=== PATIENT | male | born 1975 | race Two or more races ===

== ENCOUNTER 2018-07-08 14:35 | Emergency (ER) | payer OTHER ==
[~2018-07-08] VITALS: Ht 167.6 cm; Wt 65.8 kg
== END 2018-07-08 18:59 | disposition home or self-care (01) ==
LOC: ER 14:35
DX: M54.5 Low back pain (principal)

== ENCOUNTER 2021-09-06 08:00 | Outpatient (CLI) | payer OTHER | END 2021-09-06 08:30 | disposition home or self-care (01) | LOC: PPH VACUNA 08:00 | PROVIDERS: ATTEND Emergency Medicine Pediatric Emergency Medicine | DX: Z23 Encounter for immunization (principal) ==

== ENCOUNTER 2025-02-12 07:40 | Day surgery (SDC) | payer OTHER ==
[2025-02-06 10:02] VITALS: BP 178/90
[~2025-02-12] VITALS: Ht 167.6 cm; Wt 68.0 kg
[2025-02-12] MEDS ORDERED: CEFTRIAXONE SODIUM 2,000 MG VIAL ONE (10:57)
[2025-02-12] MEDS ORDERED: METRONIDAZOLE/SODIUM CHLORIDE 500 MG/100 ML PIGGYBACK IV ONE (10:58)
[2025-02-12] MEDS ORDERED: HEMOSTATIC MATRIX 1 KIT KIT TOP ONE (13:12)
[2025-02-12] MEDS ORDERED: BUPIVACAINE HCL/MPF 0.5% 30ML VIAL ONE (13:12)
[2025-02-12] MEDS ORDERED: DIBUCAINE 30 GM TUBE ONE (13:12)
[2025-02-12] MEDS ORDERED: LIDOCAINE HCL 1%/EPINEPHRINE 20ML VIAL IJ ONE (13:13)
[2025-02-12] MEDS ORDERED: TAMS0.4C PO (14:19)
[2025-02-12] MEDS ORDERED: RECTICARE30 GM TOP (14:19)
[2025-02-12] MEDS ORDERED: PERCOCET 5-3251 EACH PO (14:19)
== END 2025-02-12 19:15 | disposition home or self-care (01) ==
LOC: CIR.AMB 07:40
PROVIDERS: ATTEND Surgery
DX: K64.2 Third degree hemorrhoids (principal); K64.4 Residual hemorrhoidal skin tags; Z91.011 Allergy to milk products

== ENCOUNTER 2025-02-21 04:02 | Inpatient (IN) | payer OTHER ==
[~2025-02-21] VITALS: Ht 167.6 cm; Wt 70.3 kg
[~2025-02-21 04:02] MED LIST: PERCOCET 5-3251 EACH PO; RECTICARE30 GM TOP; TAMS0.4C PO
[2025-02-21] MEDS ORDERED: 0.9 % SODIUM CHLORIDE 1,000 ML IV STA (04:28)
[2025-02-21 04:57] LABS: BASO % 0.5 % (0.1-1.2); EOS # 0.16 (0.04-0.54); EOS % 0.8 % (0.7-7.0); HEMATOCRIT 27.2 % (40.1-51.0); LYMPH # 3.71 (1.18-3.74); LYMPH % 19.3 % (19.3-53.1); MONO # 1.05 (0.24-0.82); MONO % 5.5 % (4.7-12.5); NEUT # 13.83 (1.56-6.13); PLATELET COUNT 466 K/uL (163-369); RED BLOOD COUNT 3.33 M/uL (4.63-6.08); RED CELL DISTRIBUTION WIDTH 14.5 % (11.6-14.4)
[2025-02-21 05:22] LABS: ALBUMIN 3.2 gm/dL (3.4-5.0); BILIRUBIN TOTAL 0.45 mg/dL (0.3-1.2); CALCIUM 8.9 mg/dL (8.5-10.1); CREATININE SERUM 1.38 mg/dL (0.70-1.30); GFR 54.32; GLOBULINA 3.4 G/DL (2.4-3.5); POTASSIUM 4.39 mEq/L (3.5-5.1); TOTAL PROTEIN 6.6 gm/dL (6.4-8.2)
[2025-02-21 06:07] LABS: INR 1.06; PARTIAL THROMBOPLASTIN TIME 26.5 SECONDS (22.0-34.0); PROTHROMBIN TIME 11.5 SECONDS (9.0-11.5)
[2025-02-21] MEDS ORDERED: PIPERACILLIN/TAZOBACTAM SODIUM 3.375 GM VIAL IV STA (07:20)
[2025-02-21] MEDS ORDERED: PIPERACILLIN/TAZOBACTAM SODIUM 3.375 GM VIAL IV ONE (07:25)
[2025-02-21] MEDS ORDERED: DEXTROSE 5 % AND 0.9 % NACL 1,000 ML IV SCH (10:00)
[2025-02-21] MEDS ORDERED: FUROsemide 20 MG/2 ML VIAL IV SCH (10:15)
[2025-02-21] MEDS ORDERED: ENALAPRILAT DIHYDRATE 1.25 MG/ML VIAL IV PRN (10:15)
[2025-02-21] MEDS ORDERED: PIPERACILLIN/TAZOBACTAM SODIUM 3.375 GM in 0.9 % SODIUM CHLORIDE 100 ML IV SCH (12:00)
[2025-02-21 12:19] LABS: BASO % 0.4 % (0.1-1.2); EOS # 0.05 (0.04-0.54); EOS % 0.4 % (0.7-7.0); LYMPH # 2.15 (1.18-3.74); LYMPH % 15.4 % (19.3-53.1); MEAN CORPUSCULAR HEMOGLOBIN 27.6 pg (25.6-32.2); MONO # 0.67 (0.24-0.82); MONO % 4.8 % (4.7-12.5); NEUT # 10.97 (1.56-6.13); NEUT % 78.3 % (34.0-71.1); PLATELET COUNT 347 K/uL (163-369); RED BLOOD COUNT 2.79 M/uL (4.63-6.08); RED CELL DISTRIBUTION WIDTH 14.7 % (11.6-14.4)
[2025-02-21 12:33] LABS: HEMATOCRIT 22.6 % (40.1-51.0); HEMOGLOBIN 7.7 g/dL (13.7-17.5)
[2025-02-21 13:00] VITALS: BP 131/75; O2SAT 100
[2025-02-21 13:03] VITALS: BP 131/75
[2025-02-21 14:15] VITALS: BP 111/70; O2SAT 98
[2025-02-21] MEDS ORDERED: HEMOSTATIC MATRIX 1 KIT KIT TOP ONE (15:46)
[2025-02-21] MEDS ORDERED: DIBUCAINE 30 GM TUBE ONE (15:46)
[2025-02-21] MEDS ORDERED: POVIDONE-IODINE 118 ML BOTT TOP ONE (15:46)
[2025-02-21] MEDS ORDERED: BUPIVACAINE HCL/Mpf 0.5% 10ML VIAL ONE (15:47)
[2025-02-21] MEDS ORDERED: LIDOCAINE HCL 1%/EPINEPHRINE 20ML VIAL IJ ONE (15:47)
[2025-02-21 16:30] VITALS: BP 125/71; O2SAT 98
[2025-02-21] MEDS ORDERED: MORPHINE SULFATE 4 MG/ML VIAL IV PRN (18:00)
[2025-02-21 19:50] VITALS: BP 139/84; O2SAT 100
[2025-02-22 00:18] VITALS: BP 148/81; O2SAT 100
[2025-02-22] MEDS ORDERED: hydrALAZINE HCL 20 MG VIAL IV PRN (06:30)
[2025-02-22 08:25] VITALS: BP 147/77; O2SAT 99
[2025-02-22] MEDS ORDERED: FAMOTIDINE/PF 20 MG/2 ML VIAL IV SCH (09:00)
[2025-02-22] MEDS ORDERED: GABAPENTIN 300 MG CAPSULE PO PRN (09:45)
[2025-02-22] MEDS ORDERED: OxyCODONE HCL 5 MG TABLET (ROXICODONE) PO PRN (09:45)
[2025-02-22 10:02] LABS: BASO % 0.3 % (0.1-1.2); EOS % 0.8 % (0.7-7.0); HEMATOCRIT 29.8 % (40.1-51.0); HEMOGLOBIN 10.2 g/dL (13.7-17.5); LYMPH # 1.46 (1.18-3.74); LYMPH % 11.8 % (19.3-53.1); MEAN CORPUSCULAR HEMOGLOBIN 28.8 pg (25.6-32.2); MONO # 0.68 (0.24-0.82); MONO % 5.5 % (4.7-12.5); NEUT # 10.05 (1.56-6.13); NEUT % 80.9 % (34.0-71.1); PLATELET COUNT 255 K/uL (163-369); RED BLOOD COUNT 3.54 M/uL (4.63-6.08)
[2025-02-22 10:25] LABS: ALBUMIN 3.1 gm/dL (3.4-5.0); BILIRUBIN TOTAL 1.13 mg/dL (0.3-1.2); CALCIUM 8.5 mg/dL (8.5-10.1); CREATININE SERUM 1.25 mg/dL (0.70-1.30); GFR 60.89; GLOBULINA 2.7 G/DL (2.4-3.5); MAGNESIUM 2.2 mg/dL (1.8-2.4); PHOSPHOROUS 3.5 mg/dL (2.5-4.9); POTASSIUM 4.22 mEq/L (3.5-5.1); TOTAL PROTEIN 5.8 gm/dL (6.4-8.2)
[2025-02-22 10:46] LABS: C-REACTIVE PROTEIN 2.49 MG/DL (0.00-0.29)
[2025-02-22 10:56] LABS: COL EPI 59 SECONDS (82-175)
[2025-02-22] MEDS ORDERED: ACETAMINOPHEN 325 MG TABLET PO PRN (11:15)
[2025-02-22 17:21] VITALS: BP 134/80; O2SAT 100
[2025-02-22] MEDS ORDERED: TAMSULOSIN HCL 0.4 MG CAP PO SCH (21:00)
[2025-02-23 01:14] VITALS: BP 133/80; O2SAT 100
[2025-02-23 06:44] LABS: BASO % 0.4 % (0.1-1.2); EOS # 0.51 (0.04-0.54); EOS % 5.1 % (0.7-7.0); HEMATOCRIT 29.4 % (40.1-51.0); HEMOGLOBIN 9.7 g/dL (13.7-17.5); LYMPH # 2.15 (1.18-3.74); LYMPH % 21.4 % (19.3-53.1); MEAN CORPUSCULAR HEMOGLOBIN 28.1 pg (25.6-32.2); MONO # 0.67 (0.24-0.82); MONO % 6.7 % (4.7-12.5); NEUT # 6.65 (1.56-6.13); NEUT % 65.9 % (34.0-71.1); PLATELET COUNT 256 K/uL (163-369); RED BLOOD COUNT 3.45 M/uL (4.63-6.08); RED CELL DISTRIBUTION WIDTH 15.4 % (11.6-14.4)
[2025-02-23 08:29] VITALS: BP 149/81; O2SAT 100
[2025-02-23] MEDS ORDERED: SOD FERRIC GLUC COMPLX/SUCROSE 125 MG in 0.9 % SODIUM CHLORIDE 100 ML IV NR (12:35)
[2025-02-23 15:36] LABS: D DIMER 0.7 MG/L; INR 1.06; PARTIAL THROMBOPLASTIN TIME 28.4 SECONDS (22.0-34.0); PROTHROMBIN TIME 11.5 SECONDS (9.0-11.5)
[2025-02-23 15:45] VITALS: BP 145/82; O2SAT 98
[2025-02-24] VITALS: BP 134/79; O2SAT 97
[2025-02-24] MEDS ORDERED: TAMS0.4C PO (07:23)
[2025-02-24] MEDS ORDERED: TRAM1TAB98 PO (07:24)
[2025-02-24] MEDS ORDERED: METHYL PROTECT PO (07:24)
[2025-02-24] MEDS ORDERED: INTEGRA F CAPS1 EACH PO (07:24)
[2025-02-24 07:39] LABS: BASO % 0.7 % (0.1-1.2); EOS # 0.39 (0.04-0.54); EOS % 5.2 % (0.7-7.0); HEMATOCRIT 29.7 % (40.1-51.0); HEMOGLOBIN 9.8 g/dL (13.7-17.5); LYMPH # 0.95 (1.18-3.74); LYMPH % 12.6 % (19.3-53.1); MEAN CORPUSCULAR HEMOGLOBIN 28.6 pg (25.6-32.2); MONO # 0.54 (0.24-0.82); MONO % 7.1 % (4.7-12.5); NEUT # 5.59 (1.56-6.13); NEUT % 73.9 % (34.0-71.1); PLATELET COUNT 279 K/uL (163-369); RED BLOOD COUNT 3.43 M/uL (4.63-6.08); RED CELL DISTRIBUTION WIDTH 15.5 % (11.6-14.4)
[2025-02-24 08:40] LABS: ALBUMIN 3.1 gm/dL (3.4-5.0); BILIRUBIN TOTAL 0.74 mg/dL (0.3-1.2); CALCIUM 8.7 mg/dL (8.5-10.1); CREATININE SERUM 1.48 mg/dL (0.70-1.30); GFR 50.11; GLOBULINA 2.8 G/DL (2.4-3.5); POTASSIUM 4.29 mEq/L (3.5-5.1); TOTAL PROTEIN 5.9 gm/dL (6.4-8.2)
[2025-02-24 10:00] VITALS: BP 180/77; O2SAT 98
[2025-02-24] MEDS ORDERED: SOD FERRIC GLUC COMPLX/SUCROSE 125 MG in 0.9 % SODIUM CHLORIDE 100 ML IV SCH (12:00)
[2025-02-24] MEDS ORDERED: FAMOtidine 20 MG TABLET PO SCH (21:00)
[2025-02-27 05:07] LABS: FACTOR VIII ACTIVITY 189 % (56-140); VON WILLERBRAND ACTIVITY 148 % (50-200); VON WILLERBRAND ANTIGEN 163 % (50-200)
== END 2025-02-24 12:43 | disposition home or self-care (01) | DRG 348 ==
LOC: ER 04:02 → SURH 10:26
PROVIDERS: Internal Medicine Geriatric Medicine; Surgery; ADMIT Internal Medicine; ATTEND Internal Medicine
PROC: 3E0T3BZ Introduction of Anesthetic Agent into Peripheral Nerves and Plexi, Percutaneous Approach (ICD-10-PCS; 2025-02-21)
PROC: BW21ZZZ Computerized Tomography (CT Scan) of Abdomen and Pelvis (ICD-10-PCS; 2025-02-21)
PROC: BW21YZZ Computerized Tomography (CT Scan) of Abdomen and Pelvis using Other Contrast (ICD-10-PCS; 2025-02-21)
PROC: 30233N1 Transfusion of Nonautologous Red Blood Cells into Peripheral Vein, Percutaneous Approach (ICD-10-PCS; 2025-02-21)
PROC: 06LY7CC Occlusion of Hemorrhoidal Plexus with Extraluminal Device, Via Natural or Artificial Opening (ICD-10-PCS; principal; 2025-02-21 10:00)
DX: K64.2 Third degree hemorrhoids (principal); K62.5 Hemorrhage of anus and rectum; N39.0 Urinary tract infection, site not specified; D64.9 Anemia, unspecified; I10 Essential (primary) hypertension